=== PATIENT | female | born 1975 | race Hispanic/Latino ===

== ENCOUNTER 2017-10-11 20:27 | Emergency (ER) | payer OTHER ==
[2017-10-11 20:48] VITALS: BP 145/90; PULSE 95; RESP 18; TEMP 97.9; O2SAT 99
[2017-10-11] MEDS ORDERED: Bacitracin 500 Units/gm Oint Foilpak UD TOP ONE (22:18)
--- NOTE | 2017-10-11 22:20 | C.PDOC ---
History Of Present Illness 42 y/o female presents to ED for evaluation on injury to right thigh about 1 hour prior to arrival. Patient states she was doing house work and accidentally sat on sharp wire and thinks a piece of sharp wire went inside thigh. Patient denies numbness, weakness, active bleeding or any other complaints at this time. Time Seen by Provider: 10/11/17 20:59 Chief Complaint (Nursing): Lower Extremity Problem/Injury History Per: Patient History/Exam Limitations: no limitations Onset/Duration Of Symptoms: Hrs Current Symptoms Are (Timing): Still Present Past Medical History Reviewed: Historical Data, Nursing Documentation, Vital Signs Vital Signs: Last Vital Signs Temp 97.9 F 10/11/17 20:48 Pulse 95 H 10/11/17 20:48 Resp 18 10/11/17 20:48 BP 145/90 10/11/17 20:48 Pulse Ox 99 10/11/17 23:12 Surgical History: Cholecystectomy Family History: States: No Known Family Hx - Social History Hx Alcohol Use: Yes Hx Substance Use: No - Immunization History Hx Tetanus Toxoid Vaccination: No Hx Influenza Vaccination: No Hx Pneumococcal Vaccination: No Review Of Systems Constitutional: Negative for: Fever, Chills Gastrointestinal: Negative for: Nausea, Vomiting Musculoskeletal: Positive for: Leg Pain Skin: Negative for: Rash Neurological: Negative for: Weakness, Numbness Physical Exam - Physical Exam Appears: Non-toxic, No Acute Distress Skin: Warm, Dry, No Rash Head: Atraumatic, Normacephalic Eye(s): bilateral: Normal Inspection Oral Mucosa: Moist Neck: Normal ROM, Supple Extremity: Normal ROM, No Tenderness, Capillary Refill (<2 seconds), Other (1cm superficial abrasion to right lateral thigh (-)foreign body noted ) Pulses: Left Femoral: Normal, Right Femoral: Normal, Left Dorsalis Pedis: Normal , Right Dorsalis Pedis: Normal Neurological/Psych: Oriented x3, Normal Motor, Normal Sensation Gait: Steady ED Course And Treatment O2 Sat by Pulse Oximetry: 99 (RA) Pulse Ox Interpretation: Normal Medical Decision Making Medical Decision Making: Xray of right thigh showed no fracture or dislocation. This is likely an abrasion. Disposition - Disposition Referrals: [facility] [Outside] Disposition: HOME/ ROUTINE Disposition Time: 22:18 Condition: GOOD Additional Instructions: Follow up with the medical doctor within 1-2 days. Return if worsened. Instructions: Abrasion (ED) Forms: [facility] (Lithuanian), Work Excuse - Clinical Impression Clinical Impression: Abrasion - PA / LEAF BINNER / Resident Statement MD/DO has reviewed & agrees with the documentation as recorded. - Scribe Statement The provider has reviewed the documentation as recorded by the Josueibmichelle Brown All medical record entries made by the Hosea were at my direction and personally dictated by me. I have reviewed the chart and agree that the record accurately reflects my personal performance of the history, physical exam, medical decision making, and the department course for this patient. I have also personally directed, reviewed, and agree with the discharge instructions and disposition.
[2017-10-11] MEDS ORDERED: Bacitracin 500 Units/gm Oint Foilpak UD ONE (22:21)
[2017-10-11] MEDS ORDERED: Tetanus/Diphtheria Toxoids 0.5 ml Syringe IM ONE (22:24)
--- NOTE | 2017-10-12 10:24 | RAD ---
PROCEDURE: Right femur HISTORY: cut to the lateral thigh, r/o FB COMPARISON: None TECHNIQUE: Standard protocol for this study/examination. FINDINGS: No significant/acute osseous, articular or soft tissue abnormalities. No visulaized radiopaque/visualized foreign body. IMPRESSION: No significant or acute findings to account for/ related to the clinical presentation. Concordant results with the preliminary interpretation rendered by the emergency department physician procedure.
== END 2017-10-11 22:26 | disposition home or self-care (01) ==
LOC: C.ER 20:27
DX: S70.311A Abrasion, right thigh, initial encounter (principal); W22.8XXA Striking against or struck by other objects, initial encounter; Y93.E9 Activity, other interior property and clothing maintenance; Y92.009 Unspecified place in unspecified non-institutional (private) residence as the place of occurrence of the external cause; Z23 Encounter for immunization